=== PATIENT | male | born 1955 | race Caucasian/White ===

== ENCOUNTER → 2018-01-19 09:34 | Outpatient (CLI) | payer OTHER, SELFPAY ==
[2018-01-19 10:30] LABS: Absolute Lymphocyte Count 0.78 X10^3/ul (0.83-4.51); Absolute Neutrophil Count 5.3 X10^3/uL (2.0-7.7); Basophil# 0.04 X10^3/uL; Basophil% 0.5 % (0-1); Eosinophil# 0.56 X10^3/uL; Eosinophils% 7.5 % (0-5); Hematocrit 39.2 % (40-54); Hemoglobin 13.6 g/dl (13.0-16.5); Lymphocyte # 0.78 X10^3/ul (4.0); Lymphocyte % 10.4 % (19-41); Mean Corp Hgb Conc 34.7 g/gl (32-36); Mean Corpuscular Hgb 33.6 pg (27.0-32.0); Mean Corpuscular Volume 96.8 fL (80-94); Monocyte# 0.76 X10^3/uL; Monocyte% 10.2 % (0-10); Neutrophil # 5.25 X10^3/uL (2.7-7.7); Neutrophil % 70.3 % (47-70); Platelet Count 260 K/mm3 (150-450); RBC Distribution Width CV 12.1 % (11.6-14.6); RBC Distribution Width SD 41.7 fl (35.1-43.9); Red Blood Count 4.05 M/mm3 (4.6-6.2); White Blood Count 7.5 K/mm3 (4.4-11.0)
[2018-01-19 10:31] LABS: POSITIVE COUNT NO; POSITIVE DIFFERENTIAL NO; POSITIVE MORPHOLOGY NO
[2018-01-19 10:58] LABS: Microalbumin,Random Urine 62.4 mg/L (NO RANGE EST.); Microalbumin:Creatinine Ratio 116.6 mg/g CRE (<30 mg/g CRE)
[2018-01-19 11:21] LABS: ALB/GLOB Ratio 0.9 RATIO (0.9-2.4); AST(SGOT) 23 U/L (15-37); Alanine Aminotransfer ALT/SGPT 27 U/L (16-61); Albumin, Serum 3.6 g/dL (3.2-5.0); Alkaline Phosphatase 82 U/L (45-117); Anion Gap 8 (5-15); BUN 25 mg/dL (7-18); BUN/Creat Ratio 13.3 RATIO (10-20); Calcium,Total 9.4 mg/dL (8.5-10.1); Chloride 104 mmol/L (98-107); Cholesterol 191 mg/dL (200); Creatinine, Serum 1.88 mg/dL (0.70-1.30); EST Glomerular Filtration Rate 39 mL/min (>60); Est Glom Filt Rate - Afr Amer 47 mL/min (>60); Globulin 4.2 g/dL (2.2-4.2); Glucose 92 mg/dL (74-106); High Density Lipoprotein 56 mg/dL; Potassium 4.3 mmol/L (3.5-5.1); Protein, Total 7.8 g/dL (6.4-8.2); Sodium Level 136 mmol/L (136-145); T3 Total - Triiodothyronine 0.86 ng/mL (0.6-1.81); T4 Total, Thyroxin 6.8 ug/dL (4.5-12.1); Thyroid Stim Hormone (TSH) 1.74 uIU/mL (0.358-3.74); Triglycerides 66 mg/dL; Very Low Density Lipoprotein 13 mg/dL (5-40); Vitamin D,25 Hydroxy 25.3 ng/mL (29.95-100.01)
== END ==
PROVIDERS: Visit Provider Specialist
DX: E78.5 Hyperlipidemia, unspecified (principal); I10 Essential (primary) hypertension; R53.83 Other fatigue
CPT/HCPCS: 36415; 80053; 80061; 82043; 82306; 82570; 84436; 84443; 84480; 85025

== ENCOUNTER → 2018-04-05 11:24 | Outpatient (CLI) | payer OTHER, SELFPAY ==
[2018-04-05 16:24] LABS: Anion Gap 8 (5-15); BUN 20 mg/dL (7-18); BUN/Creat Ratio 10.6 RATIO (10-20); Calcium,Total 9.4 mg/dL (8.5-10.1); Chloride 103 mmol/L (98-107); Creatinine, Serum 1.88 mg/dL (0.70-1.30); EST Glomerular Filtration Rate 39 mL/min (>60); Est Glom Filt Rate - Afr Amer 47 mL/min (>60); Glucose 80 mg/dL (74-106); Potassium 3.8 mmol/L (3.5-5.1); Sodium Level 133 mmol/L (136-145)
== END ==
PROVIDERS: Visit Provider Family Medicine
DX: N18.3 Chronic kidney disease, stage 3 (moderate) (principal)
CPT/HCPCS: 36415; 80048

== ENCOUNTER → 2018-04-16 10:15 | Outpatient (CLI) | payer OTHER, SELFPAY ==
--- NOTE | 2018-04-16 10:23 | US_ITS ---
STUDY: RENAL ULTRASOUND - COMPLETE REASON FOR EXAM: Male, 62 years old. Chronic kidney disease TECHNIQUE: Ultrasound evaluation of the kidneys was performed with real-time and static reid-scale imaging. COMPARISON: None. FINDINGS: RIGHT KIDNEY: Normal location of the right kidney, which is normal in size. The right kidney measures 11.3 x 6.6 x 6.2 cm. There is a normal cortex of the right kidney. The renal cortex measures 1.9 cm. There are 2 right renal cysts measuring 2.1 x 2.0 x 2.2 cm and 1.6 x 1.8 x 1.7 cm respectively. There is a 4 mm right renal calculus. There is no right hydronephrosis. DISTAL RIGHT URETER: There is non-visualization of the distal right ureter. There is no demonstrated right ureterovesical junction calculus. There is a visualized right ureteral jet. LEFT KIDNEY: Normal location of the left kidney, which is normal in size. The left kidney measures 12.3 x 4.9 x 5.7 cm. There is a normal cortex of the left kidney. The renal cortex measures 1.9 cm. There are 2 left renal cysts measuring 1.5 x 1.8 x 1.3 cm and 5.6 x 4.8 x 3.5 cm. There are no left renal calculi. There is no left hydronephrosis. DISTAL LEFT URETER: There is non-visualization of the distal left ureter. There is no demonstrated left ureterovesical junction calculus. There is a visualized left ureteral jet. BLADDER: The distended urinary bladder has a volume of 255 ml. The empty urinary bladder has a volume of 19 ml. There is a normal wall thickness of the distended urinary bladder. There is no demonstrated mass within the urinary bladder. There are no demonstrated bladder calculi. The prostate is enlarged measuring 6.6 x 5.3 x 3.7 cm. US/Kidney and Bladder IMPRESSION: Bilateral renal cysts as detailed above. 4 mm nonobstructing right renal calculus. Electronically Signed: Last Webber MD at 20:05 EDT , Service support ,
== END ==
PROVIDERS: Visit Provider Family Medicine
DX: N18.3 Chronic kidney disease, stage 3 (moderate) (principal)
CPT/HCPCS: 76770

== ENCOUNTER → 2018-04-20 10:29 | Outpatient (CLI) | payer OTHER, SELFPAY ==
[2018-04-20 10:33] LABS: Bacteria 0 SEEN /hpf (None Seen); Mucous, Urine 0 SEEN /hpf (<or=2+); Red Blood Cells-Urine 0 SEEN /hpf (0-5)
[2018-04-20 12:14] LABS: Color, Urine Yellow (Yellow); Glucose, Dipstick 100 mg/dl (Normal); Ketone-Dipstick Negative (Negative); Leukocyte Esterase-Dipstick Negative /ul (Negative); Nitrite-Dipstick Negative (Negative); Occult Blood-Urine 50 /ul (Negative); Protein-Dipstick 15 mg/dl (Negative); Urine Bilirubin Dipstick Negative (Negative); Urine Clarity Clear (Clear); Urine Urobilinogen Normal (Normal)
[2018-04-20 12:19] LABS: Squamous Epithelial Cells - UA 0-5 SEEN /hpf (0-5); White Blood Cells 0-5 SEEN /hpf (0-5)
[2018-04-23 16:10] LABS: PROEL- A/G Ratio 1.5 (0.7-1.7); PROEL- Albumin 4.3 g/dL (2.9-4.4); PROEL- Alpha-1 Globulin 0.2 g/dL (0.0-0.4); PROEL- Alpha-2 Globulin 0.7 g/dL (0.4-1.0); PROEL- Beta Globulin 0.9 g/dL (0.7-1.3); PROEL- Globulin, Total 2.8 g/dL (2.2-3.9); PROEL- TOTAL PROTEIN 7.1 g/dL (6.0-8.5); PROELU- Albumin, Urine 30.1 % (.); PROELU- Alpha-1-Globulin,Ur 8.4 % (.); PROELU- Alpha-2-Globulin,Ur 26.2 % (.); PROELU- Beta Globulin, Ur 21.5 % (.); PROELU- Gamma Globulin, Ur 13.9 % (.); Total Protein, Ur 15.7 mg/dL (Not Estab.)
== END ==
PROVIDERS: Family Provider Family Medicine; PCP Family Medicine; Visit Provider Family Medicine
DX: N18.3 Chronic kidney disease, stage 3 (moderate) (principal)
CPT/HCPCS: 36415; 81001; 84165; 84166

== ENCOUNTER → 2018-06-13 13:38 | Outpatient (CLI) | payer OTHER, SELFPAY ==
[2018-06-13 14:39] LABS: Albumin, Serum 4.3 g/dL (3.2-5.0); BUN 16 mg/dL (7-18); BUN/Creat Ratio 11.3 RATIO (10-20); Calcium,Total 9.6 mg/dL (8.5-10.1); Chloride 96 mmol/L (98-107); Creatinine, Serum 1.42 mg/dL (0.70-1.30); EST Glomerular Filtration Rate 54 mL/min (>60); Est Glom Filt Rate - Afr Amer 65 mL/min (>60); Glucose 87 mg/dL (74-106); Phosphorus 2.6 mg/dL (2.5-4.9); Potassium 3.9 mmol/L (3.5-5.1); Sodium Level 130 mmol/L (136-145)
== END ==
PROVIDERS: Family Provider Family Medicine; PCP Family Medicine; Visit Provider Internal Medicine Nephrology
DX: N17.9 Acute kidney failure, unspecified (principal)
CPT/HCPCS: 36415; 80069

== ENCOUNTER → 2018-07-18 13:18 | Outpatient (CLI) | payer OTHER, SELFPAY ==
[2018-07-18 17:30] LABS: Albumin, Serum 3.9 g/dL (3.2-5.0); BUN 19 mg/dL (7-18); BUN/Creat Ratio 13.5 RATIO (10-20); Calcium,Total 9.4 mg/dL (8.5-10.1); Chloride 94 mmol/L (98-107); Creatinine, Serum 1.41 mg/dL (0.70-1.30); EST Glomerular Filtration Rate 54 mL/min (>60); Est Glom Filt Rate - Afr Amer 65 mL/min (>60); Glucose 89 mg/dL (74-106); Phosphorus 2.5 mg/dL (2.5-4.9); Potassium 4.2 mmol/L (3.5-5.1); Sodium Level 130 mmol/L (136-145)
== END ==
PROVIDERS: Family Provider Family Medicine; PCP Family Medicine; Visit Provider Internal Medicine Nephrology
DX: N17.9 Acute kidney failure, unspecified (principal)
CPT/HCPCS: 36415; 80069

== ENCOUNTER → 2018-11-12 12:14 | Outpatient (CLI) | payer OTHER, SELFPAY ==
[2018-11-12 13:30] LABS: Albumin, Serum 3.9 g/dL (3.2-5.0); BUN 18 mg/dL (7-18); BUN/Creat Ratio 12.3 RATIO (10-20); Calcium,Total 9.3 mg/dL (8.5-10.1); Chloride 102 mmol/L (98-107); Creatinine, Serum 1.46 mg/dL (0.70-1.30); EST Glomerular Filtration Rate 52 mL/min (>60); Est Glom Filt Rate - Afr Amer 63 mL/min (>60); Glucose 126 mg/dL (74-106); Phosphorus 2.6 mg/dL (2.5-4.9); Potassium 4.2 mmol/L (3.5-5.1); Sodium Level 137 mmol/L (136-145)
== END ==
PROVIDERS: Visit Provider Internal Medicine Nephrology
DX: N17.9 Acute kidney failure, unspecified (principal)
CPT/HCPCS: 36415; 80069

== ENCOUNTER 2019-02-12 05:44 | Day surgery (SDC) | payer OTHER, SELFPAY ==
[2019-02-06 14:08] VITALS: BMI 29.0
--- NOTE | 2019-02-06 16:20 | HP_ITS ---
Intake Vital Signs 02/06/19 Height 6 ft 02/06/19 Weight: 214 lb 02/06/19 Body Mass Index (BMI) 29.0 02/06/19 Blood Pressure 169/79 H 02/06/19 Blood Pressure Location Rt brachial 02/06/19 Blood Pressure Position Sitting 02/06/19 Respiratory Rate 20 H 02/06/19 Pulse Rate 89 02/06/19 Pulse Source Monitor 02/06/19 Temperature 98.2 F 02/06/19 Temperature Source Oral 02/06/19 Pulse Ox 96 02/06/19 Oxygen Delivery Method room air Intake Visit Reasons: Hernia Clinical Program Consultant Required: No Is patient in pain?: No Allergies No Known Allergies Allergy (Unverified 02/06/19 14:09) Medications amlodipine 10 mg tablet 10 mg PO DAILY 02/06/19 [History Confirmed 02/06/19] citalopram 40 mg tablet 20 mg PO DAILY 02/06/19 [History Confirmed 02/06/19] losartan 100 mg tablet 100 mg PO DAILY 02/06/19 [History Confirmed 02/06/19] PFSH Medical History Tobacco abuse (Acute) Bilateral inguinal hernia without obstruction or gangrene (Acute) Screening for intestinal cancer (Acute) Arthritis (Acute) Hemorrhoids (Acute) Left inguinal hernia (Acute) Hypertension (Chronic) Surgical History History of carpal tunnel surgery of right wrist (Acute) hitory ORIF right leg (Acute) Family History Mother Arthritis Sister Breast cancer Father Diabetes Hypertension Arthritis Sister Cancer Lung Cancer Social History Smoking Status: Current every day smoker tobacco type: cigarettes Tobacco: How many years used: 40 alcohol intake: current alcohol intake frequency: 0-2 drinks per day details: Drinks a couple beers per day substance use type: does not use HPI HPI HPI: JESSICA SNIDER, is a 63 M who presents to the office today for HPI HPI Surgical H&P: Yes HPI: JESSICA SNIDER, is a 63 M who presents to the office today for surgical consultation regarding a progressively enlarging left inguinal hernia. His primary care physician is Dr.Hannah Dominguez who assists in recommending surgical consultation. A written compromise surgical consult recommendations will be returned to her. The patient has known about a left inguinal hernia for extended period of time. When I performed the examination in addition to a large left inguinal hernia easily detected right inguinal hernia. The patient admitted that he also had one at that location as well. He has not had any abdominal surgery. He states that he has had a very remote colonoscopy but greater than 10 years ago. He notes that he has nocturia at least once to twice nightly. He has been a long-term cigarette smoker. He also drinks at least 2 beers per day ROS General General: No weight change, appetite, fatigue, colon cancer, breast cancer or weakness HEENT HEENT: No difficulty swallowing, eye injury, eye surgery, swollen glands or hoarseness Endo Endocrine: No thyroid disease, diabetes mellitus, thyroid cancer, Hair loss, heat intolerance or cold intolerance Skin Skin: No rash or changing moles Breast Breast: No left breast lump, right breast lump, nipple discharge, breast pain, abnormal mammogram, abnormal US or breast enlargement Musc Musculoskeletal: Yes arthritis; no back problems, rheumatoid arthritis, gout or joint pain Cardio Cardiovascular: Yes high blood pressure; no murmur, pacemaker, heart disease, atrial fibrillation, heart attack, heart stent, palpitations, shortness of breat with exertion or chest pain Psych Psychiatric: Yes anxiety; no depression or hearing voices Resp Respiratory: No shortness of breath, No sleep apnea, No cough, No COPD, No asthma, No emphysema, No wheezing Gastro Gastrointestinal: No abdominal pain, No nausea or vomiting, No diarrhea, No constipation, No blood in stool, No acid reflux, Yes hemorrhoids, No ulcers, No gallbladder problem, No black,tarry stools David Hematologic: No blood thinners, No blood disorders, No bleeding, No anemia, No blood clots Neuro Neurologic: No system reviewed and no additional complaints, except as docu, No as per HPI, No abnormal walking, No abnormal hearing, No abnormal movements, No abnormal speech, No behavioral changes, No burning sensations, No confusion, No seizure-like activity, No unsteadiness, No dizziness, No localized weakness, No frequent falls, No headache(s), No lack of coordination, No loss of vision, No memory loss, No numbness, No other visual disturbances, No radiating pain, No restless legs, No sensory deficit, No fainting, No tingling, No tremor(s), No weakness, No other Exam Const General: cooperative, healthy appearing, comfortable, no acute distress Nutritional Appearance: overweight Orientation: alert, awake, oriented x3 HENMT Head: normal to inspection Eyes General: appearance normal, both eyes and all related structures Chest Breast Palpation: No nipple discharge Resp Effort & Inspection: normal respiratory effort Auscultation: clear to auscultation bilaterally Cardio Rate: regular rate Rhythm: regular rhythm Heart Sounds: no murmurs GI Palpation: soft, no hepatosplenomegaly Auscultation: normal bowel sounds Other: Large indirect left inguinal hernia with bowel involvement. Reducible. Moderate right inguinal hernia likely indirect. Reducible. Testicles descended bilaterally but atrophic Skin General: no rashes or lesions noted Extrem General: no calf tenderness bilaterally Psych Affect: normal affect Assessment & Plan Problems 1. Screening for intestinal cancer Z12.10 2. Non-recurrent bilateral inguinal hernia without obstruction or gangrene K40.20 3. Tobacco abuse Z72.0 4. Nocturia R35.1 Plan 63-year-old gentleman. He has quite a sizable left inguinal hernia with sigmoid colon involvement. He has a more moderate size right inguinal hernia. Because of the length of time that the sigmoid colon has been involved in the left inguinal hernia I recommend a colonoscopy with possible biopsy or polypectomy as indicated. He has not had a colonoscopy for greater than 10 years. He is aware of the technique, benefit, risk and alternatives. The patient does have significant tobacco and alcohol dependency. I will recommend that we perform this with monitored anesthesia care. He has left greater than right inguinal hernia. I recommend a laparoscopic bilateral inguinal herniorrhaphy with mesh. In detail I discussed the technique, benefit, risks and alternatives. No guarantees of success have been offered. I have strongly cautioned the patient that he is at increased risk of recurrence if he continues to use cigarettes and I have urged him to cease immediately to improve his perioperative and postoperative course. He is well aware of the importance. I am recommending that we initiate Flomax 0.4 mg orally nightly because of his symptoms of nocturia. Patient is aware that this will assist with possible postoperative acute urinary retention. He has had an opportunity to ask and have questions answered. I very much appreciate the kind opportunity of assisting with his surgical care. Cc: Dr. Aliyah Caldwell M.D., F.A.C.S. Orders Orders: Colonoscopy Today Z86.010 Coding Level of Care Code Comprehensive,moderate Diagnoses Screening for intestinal cancer Z12.10 Non-recurrent bilateral inguinal hernia without obstruction or gangrene K40.20 ??Recurrence: non-recurrent Tobacco abuse Z72.0 Nocturia R35.1
[2019-02-12] VITALS (13 sets, daily range): BP systolic 59–128; BP diastolic 48–75; PULSE 68–89; RESP 16–18; TEMP 36.6–37; O2SAT 90–99; BMI 28.5
--- NOTE | 2019-02-12 07:34 | EKG12_ITS ---
Test Reason : POST-OP ARRYTHMIA Blood Pressure : / mmHG Vent. Rate : 074 BPM Atrial Rate : 074 BPM P-R Int : 160 ms QRS Dur : 090 ms QT Int : 396 ms P-R-T Axes : 047 000 045 degrees QTc Int : 439 ms Normal sinus rhythm Normal ECG No previous ECGs available Confirmed by GIGI ALFREDO ([id number]), supervising editor trailer ILIA MCGILL ([id number]) on 02/18/2019 2:35:17 PM Referred By: Martha Dominguez Confirmed By:GERBER ALFREDO
--- NOTE | 2019-02-12 07:37 | OP.ENDO_ITS ---
02/12/2019 Martha Dominguez [place] [id number] [address] Re : Colonoscopy procedure for Rodrigo Ann Dear Dr. Dominguez This procedure was performed on Tuesday, February 12, 2019. My impressions and recommendations are as follows: Impressions : - Diverticulosis in the sigmoid colon. - The examination was otherwise normal. - No specimens collected. Check ECG Recommendations : - Discharge patient to home. - Resume previous diet. - Continue present medications. - Repeat colonoscopy in 10 years for screening purposes. My findings are described in the full procedure note, which is enclosed. If I can be of further assistance, please feel free to contact me at Doctor phone number(s): Work: . Sincerely, nAthony Caldwell MD 02/12/2019 7:37:31 AM This report has been signed electronically.
== END 2019-02-12 08:48 | disposition home or self-care (01) ==
LOC: EN 05:46 → AC 05:46
PROVIDERS: Family Provider Family Medicine; PCP Family Medicine; Referring Provider Family Medicine; Visit Provider Surgery
PROC: 0DJD8ZZ Inspection of Lower Intestinal Tract, Via Natural or Artificial Opening Endoscopic (ICD-10-PCS; CPT 45378; principal; 2019-02-12 06:55)
DX: Z12.10 Encounter for screening for malignant neoplasm of intestinal tract, unspecified (principal); K57.30 Diverticulosis of large intestine without perforation or abscess without bleeding; K40.20 Bilateral inguinal hernia, without obstruction or gangrene, not specified as recurrent; R35.1 Nocturia; R00.1 Bradycardia, unspecified; I95.9 Hypotension, unspecified; I10 Essential (primary) hypertension; F17.210 Nicotine dependence, cigarettes, uncomplicated
CPT/HCPCS: 45378; 93005; 99152; 99153; J7120

== ENCOUNTER → 2019-02-19 10:21 | Outpatient (CLI) | payer OTHER, SELFPAY ==
[2019-02-12 06:01] VITALS: BMI 28.5
[2019-02-19 11:49] LABS: Hematocrit 42.5 % (40-54); Mean Corp Hgb Conc 35.3 g/gl (32-36); Mean Corpuscular Hgb 34.1 pg (27.0-32.0); Mean Corpuscular Volume 96.6 fL (80-94); Mean Platelet Vol. 9.5 fl (6.2-12.0); Platelet Count 201 K/mm3 (150-450); RBC Distribution Width CV 11.9 % (11.6-14.6); RBC Distribution Width SD 41.2 fl (35.1-43.9); Scan Indicated on CBC? Y/N NO; White Blood Count 5.5 K/mm3 (4.4-11.0)
[2019-02-19 12:08] LABS: Anion Gap 3 (5-15); BUN 23 mg/dL (7-18); BUN/Creat Ratio 16.7 RATIO (10-20); Calcium,Total 8.9 mg/dL (8.5-10.1); Chloride 106 mmol/L (98-107); Creatinine, Serum 1.38 mg/dL (0.70-1.30); EST Glomerular Filtration Rate 55 mL/min (>60); Est Glom Filt Rate - Afr Amer 67 mL/min (>60); Glucose 95 mg/dL (74-106); Potassium 4.3 mmol/L (3.5-5.1); Sodium Level 134 mmol/L (136-145)
== END ==
PROVIDERS: Family Provider Family Medicine; PCP Family Medicine; Referring Provider Surgery; Visit Provider Surgery
DX: Z01.818 Encounter for other preprocedural examination (principal)
CPT/HCPCS: 36415; 80048; 85027

== ENCOUNTER 2019-02-21 10:19 | Day surgery (SDC) | payer OTHER, SELFPAY ==
[2019-02-06 14:08] VITALS: BMI 29.0
[2019-02-12 06:01] VITALS: BMI 28.5
[2019-02-21] VITALS (7 sets, daily range): BP systolic 120–138; BP diastolic 58–80; PULSE 62–82; RESP 16–18; TEMP 36.7–37.2; O2SAT 93–98; BMI 28.5
--- NOTE | 2019-02-21 05:44 | HP.PCM_ITS ---
Problem List (1) Bilateral inguinal hernia without obstruction or gangrene Status: Acute Qualifiers: History and Physical Date of Admission: 02/21/19 MR#: [id number] Acct: [id number] Name: JESSICA SNIDER Rep #: [id number] : 1955 Provider: Anthony Caldwell MD Age/Sex: 63/M Location: [facility] Status: Signed Intake Vital Signs 02/06/19 Height 6 ft 02/06/19 Weight: 214 lb 02/06/19 Body Mass Index (BMI) 29.0 02/06/19 Blood Pressure 169/79 H 02/06/19 Blood Pressure Location Rt brachial 02/06/19 Blood Pressure Position Sitting 02/06/19 Respiratory Rate 20 H 02/06/19 Pulse Rate 89 02/06/19 Pulse Source Monitor 02/06/19 Temperature 98.2 F 02/06/19 Temperature Source Oral 02/06/19 Pulse Ox 96 02/06/19 Oxygen Delivery Method room air 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 Required: No Is patient in pain?: No Allergies No Known Allergies Allergy (Unverified 02/06/19 14:09) Medications amlodipine 10 mg tablet 10 mg PO DAILY 02/06/19 [History Confirmed 02/06/19] citalopram 40 mg tablet 20 mg PO DAILY 02/06/19 [History Confirmed 02/06/19] losartan 100 mg tablet 100 mg PO DAILY 02/06/19 [History Confirmed 02/06/19] PFSH Medical History Tobacco abuse (Acute) Bilateral inguinal hernia without obstruction or gangrene (Acute) Screening for intestinal cancer (Acute) Arthritis (Acute) Hemorrhoids (Acute) Left inguinal hernia (Acute) Hypertension (Chronic) Surgical History History of carpal tunnel surgery of right wrist (Acute) hitory ORIF right leg (Acute) Family History Mother Arthritis Sister Breast cancer Father Diabetes Hypertension Arthritis Sister Cancer Lung Cancer Social History Smoking Status: Current every day smoker tobacco type: cigarettes Tobacco: How many years used: 40 alcohol intake: current alcohol intake frequency: 0-2 drinks per day details: Drinks a couple beers per day substance use type: does not use HPI HPI HPI: JESSICA SNIDER, is a 63 M who presents to the office today for HPI HPI Surgical H&P: Yes HPI: JESSICA SNIDER, is a 63 M who presents to the office today for surgical consultation regarding a progressively enlarging left inguinal hernia. His primary care physician is Dr.Hannah Dominguez who assists in recommending surgical consultation. A written compromise surgical consult recommendations will be returned to her. The patient has known about a left inguinal hernia for extended period of time. When I performed the examination in addition to a large left inguinal hernia easily detected right inguinal hernia. The patient admitted that he also had one at that location as well. He has not had any abdominal surgery. He states that he has had a very remote colonoscopy but greater than 10 years ago. He notes that he has nocturia at least once to twice nightly. He has been a long-term cigarette smoker. He also drinks at least 2 beers per day ROS General General: No weight change, appetite, fatigue, colon cancer, breast cancer or weakness HEENT HEENT: No difficulty swallowing, eye injury, eye surgery, swollen glands or hoarseness Endo Endocrine: No thyroid disease, diabetes mellitus, thyroid cancer, Hair loss, heat intolerance or cold intolerance Skin Skin: No rash or changing moles Breast Breast: No left breast lump, right breast lump, nipple discharge, breast pain, abnormal mammogram, abnormal US or breast enlargement Musc Musculoskeletal: Yes arthritis; no back problems, rheumatoid arthritis, gout or joint pain Cardio Cardiovascular: Yes high blood pressure; no murmur, pacemaker, heart disease, atrial fibrillation, heart attack, heart stent, palpitations, shortness of breat with exertion or chest pain Psych Psychiatric: Yes anxiety; no depression or hearing voices Resp Respiratory: No shortness of breath, No sleep apnea, No cough, No COPD, No asthma, No emphysema, No wheezing Gastro Gastrointestinal: No abdominal pain, No nausea or vomiting, No diarrhea, No constipation, No blood in stool, No acid reflux, Yes hemorrhoids, No ulcers, No gallbladder problem, No black,tarry stools David Hematologic: No blood thinners, No blood disorders, No bleeding, No anemia, No blood clots Neuro Neurologic: No system reviewed and no additional complaints, except as docu, No as per HPI, No abnormal walking, No abnormal hearing, No abnormal movements, No abnormal speech, No behavioral changes, No burning sensations, No confusion, No seizure-like activity, No unsteadiness, No dizziness, No localized weakness, No frequent falls, No headache(s), No lack of coordination, No loss of vision, No memory loss, No numbness, No other visual disturbances, No radiating pain, No restless legs, No sensory deficit, No fainting, No tingling, No tremor(s), No weakness, No other Exam Const General: cooperative, healthy appearing, comfortable, no acute distress Nutritional Appearance: overweight Orientation: alert, awake, oriented x3 HENMT Head: normal to inspection Eyes General: appearance normal, both eyes and all related structures Chest Breast Palpation: No nipple discharge Resp Effort & Inspection: normal respiratory effort Auscultation: clear to auscultation bilaterally Cardio Rate: regular rate Rhythm: regular rhythm Heart Sounds: no murmurs GI Palpation: soft, no hepatosplenomegaly Auscultation: normal bowel sounds Other: Large indirect left inguinal hernia with bowel involvement. Reducible. Moderate right inguinal hernia likely indirect. Reducible. Testicles descended bilaterally but atrophic Skin General: no rashes or lesions noted Extrem General: no calf tenderness bilaterally Psych Affect: normal affect Assessment & Plan Problems 1. Screening for intestinal cancer Z12.10 2. Non-recurrent bilateral inguinal hernia without obstruction or gangrene K40.20 3. Tobacco abuse Z72.0 4. Nocturia R35.1 Plan 63-year-old gentleman. He has quite a sizable left inguinal hernia with sigmoid colon involvement. He has a more moderate size right inguinal hernia. Because of the length of time that the sigmoid colon has been involved in the left inguinal hernia I recommend a colonoscopy with possible biopsy or polyp ectomy as indicated. He has not had a colonoscopy for greater than 10 years. He is aware of the technique, benefit, risk and alternatives. The patient does have significant tobacco and alcohol dependency. I will recommend that we perform this with monitored anesthesia care. He has left greater than right inguinal hernia. I recommend a laparoscopic bilateral inguinal herniorrhaphy with mesh. In detail I discussed the technique, benefit, risks and alternatives. No guarantees of success have been offered. I have strongly cautioned the patient that he is at increased risk of recurrence if he continues to use cigarettes and I have urged him to cease immediately to improve his perioperative and postoperative course. He is well aware of the importance. I am recommending that we initiate Flomax 0.4 mg orally nightly because of his symptoms of nocturia. Patient is aware that this will assist with possible postoperative acute urinary retention. He has had an opportunity to ask and have questions answered. I very much appreciate the kind opportunity of assisting with his surgical care. Cc: Dr. Aliyah Caldwell M.D., F.A.C.S. Orders Orders: Colonoscopy Today Z86.010 Coding Level of Care Code Comprehensive,moderate Diagnoses Screening for intestinal cancer Z12.10 Non-recurrent bilateral inguinal hernia without obstruction or gangrene K40.20 ??Recurrence: non-recurrent Tobacco abuse Z72.0 Nocturia R35.1 02/06/19 1650 <Electronically signed by Anthony Caldwell MD> Date Anthony Caldwell MD I have re-examined the patient. There are no clinical changes since date of exam
--- NOTE | 2019-02-21 12:34 | DCINST_ITS ---
Discharge Diet: Light diet - advance as tolerated - if you have questions about your diet instructions, please talk to you doctor. Discharge Activity: May Not Drive - for 3-5 days or while taking narcotic pain medicine. May shower in (days): 1 Lifting Restrictions: 10 pounds Call your doctor if your incision/area has: Continuous Slow Oozing, Sudden Increased Bleeding, Increased Pain/ Swelling, Increased Redness, Foul Smelling Discharge Call your doctor if you observe: Fever of 101 or Higher Suture Line Care: Avoid Pulling/Pushing, Avoid Pinching/Bending Additional Dressing/Incision Instructions:: Change or remove dressing in 4 days. Leave steri-strips in place for 1 week. Allergies/Adverse Reactions: Allergies No Known Allergies Allergy (Unverified 02/21/19 10:36) Medications to take at Discharge amlodipine 10 mg tablet 10 mg PO DAILY 02/06/19 citalopram 40 mg tablet 20 mg PO DAILY 02/06/19 losartan 100 mg tablet 100 mg PO DAILY 02/06/19 Psyllium Husk [Metamucil] 0.4 gm PO DAILY 02/14/19 Tamsulosin HCl [Flomax] 0.4 mg PO DAILY 02/14/19 Hydrocodone Bitart/Apap 5-325 [[place] 5MG-325MG] 1 tablet PO Q6H PRN PRN 3 Days #10 tablet 02/21/19 The following prescriptions were given: Hydrocodone Bitart/Apap 5-325 [[place] 5MG-325MG] 1 tablet PO Q6H PRN PRN 3 Days #10 tablet PRN Reason: Pain Primary Care Physician: Martha Dominguez MD [Primary Care Provider] - Test Results: Test results from this visit will be discussed in further detail at your follow- up appointment, if applicable. Please Follow Up With: Anthony Caldwell MD - [phone] When: Call to make an appointment to be seen in about 10 days.
[2019-02-21] MEDS: Cefazolin 2 GM in 0.9% Normal Saline 100 ML IV (12:35)
[2019-02-21] MEDS: Bupivacaine Mpf 0.5% 30 ML VIAL (12:44)
--- NOTE | 2019-02-21 13:55 | PCM.OPRPT ---
Problem List (1) Bilateral inguinal hernia without obstruction or gangrene Status: Acute Qualifiers: Report of Operation Date of Procedure: 02/21/19 Pre-Operative Diagnosis: Bilateral inguinal hernias Post-Operative Diagnosis: Bilateral direct inguinal hernias left larger than the right Surgery/Procedure Performed:: Laparoscopic bilateral inguinal herniorrhaphy. Right Bard 3D max large. Lot number [id number]. Reference #[id number]. Expiry date 10/12/2023. Left Bard 3 DMax extra-large. Lot number [id number]. Reference #[id number]. Expiry date 02/10/2022. Secure strap 25. Lot number [id number]. Expiry date 09/04/2020 Description of Surgical Findings:: 63-year-old gentleman who presents with a very symptomatic large left internal hernia with a smaller right inguinal hernia Timeout informed consent was obtained. He was taken out from placement table, general endotracheal intubation anesthesia. The abdomen sterilely prepped and draped. Ancef 2 g given intravenous preoperatively. 0.5% Marcaine was used as local anesthetic. Throughout the procedure total 30 cc was used. Skin sites were reanesthetized. A vertical infraumbilical incision was created holding sutures of 0 Vicryl placed varies needle inserted using drop test performed. The abdomen is insufflated with CO2 to a pressure of 10 mmHg pressure. Try me trocar inserted to the left scope inserted. The bilateral direct inguinal hernias noted left greater than right. 5 mm trochars were placed in the right left lower quadrants. Ilioinguinal nerve blocks were performed under lap scopic visualization. The right groin was dressed first the peritoneum superior lateral to the internal ring was incised carried medially the peritoneum was completely dissected free the hernia sac dissected free the direct indirect and femoral areas dissected free. A Bard 3D max large right mesh was placed and then secured with secure tack laterally and superiorly with 3 tacks. Then I gain access to the left groin. In a similar fashion the peritoneum was dissected free. A extra-large Bard 3D max was selected for the left exit nicely set in position and simply was secured laterally and superiorly with secure strap. It was then secured in the midline to the other mesh with a secure strap x2. Excellent positioning of each mesh was achieved. The peritoneum was then approximated to itself completely obliterated access to the mesh. A single Hemoclip was placed on the right sided peritoneum to assure complete occlusion. Trochars were removed under visualization. The abdomen was allowed to deflate CO2. The fascia at the umbilicus approximately a residual Vicryl figure 8 suture. Skin edges approximated interrupted 4 Monocryl subdermal stitches. Steri-Strips and Telfa and OpSite dressings applied. Sponge and instrument and needle counts were reported to surgically correct. Blood loss was minimal. No apparent complications. He was taken to the recovery area in satisfactory condition. Specimens none. Drains none. Blood loss minimal. Anthony Caldwell M.D., F.A.C.S. Type of Anesthesia:: General Anesthesiologist: Fahad Clark
--- NOTE | 2019-02-21 14:00 | OP.PCM_ITS ---
Problem List (1) Bilateral inguinal hernia without obstruction or gangrene Status: Acute Qualifiers: Report of Operation Date of Procedure: 02/21/19 Pre-Operative Diagnosis: Bilateral inguinal hernias Post-Operative Diagnosis: Bilateral direct inguinal hernias left larger than the right Surgery/Procedure Performed:: Laparoscopic bilateral inguinal herniorrhaphy. Right Bard 3D max large. Lot number [id number]. Reference #[id number]. Expiry date 10/12/2023. Left Bard 3 DMax extra-large. Lot number [id number]. Reference #[id number]. Expiry date 02/10/2022. Secure strap 25. Lot number [id number]. Expiry date 09/04/2020 Description of Surgical Findings:: 63-year-old gentleman who presents with a very symptomatic large left internal hernia with a smaller right inguinal hernia Timeout informed consent was obtained. He was taken out from placement table, general endotracheal intubation anesthesia. The abdomen sterilely prepped and draped. Ancef 2 g given intravenous preoperatively. 0.5% Marcaine was used as local anesthetic. Throughout the procedure total 30 cc was used. Skin sites were reanesthetized. A vertical infraumbilical incision was created holding sutures of 0 Vicryl placed varies needle inserted using drop test performed. The abdomen is insufflated with CO2 to a pressure of 10 mmHg pressure. Try me trocar inserted to the left scope inserted. The bilateral direct inguinal hernias noted left greater than right. 5 mm trochars were placed in the right left lower quadrants. Ilioinguinal nerve blocks were performed under lap scopic visualization. The right groin was dressed first the peritoneum superior lateral to the internal ring was incised carried medially the peritoneum was completely dissected free the hernia sac dissected free the direct indirect and femoral areas dissected free. A Bard 3D max large right mesh was placed and then secured with secure tack laterally and superiorly with 3 tacks. Then I gain access to the left groin. In a similar fashion the peritoneum was dissected free. A extra-large Bard 3D max was selected for the left exit nicely set in position and simply was secured laterally and superiorly with secure strap. It was then secured in the midline to the other mesh with a secure strap x2. Excellent positioning of each mesh was achieved. The peritoneum was then approximated to itself completely obliterated access to the mesh. A single Hemoclip was placed on the right sided peritoneum to assure complete occlusion. Trochars were removed under visualization. The abdomen was allowed to deflate CO2. The fascia at the umbilicus approximately a residual Vicryl figure 8 suture. Skin edges approximated interrupted 4 Monocryl subdermal stitches. Steri-Strips and Telfa and OpSite dressings applied. Sponge and instrument and needle counts were reported to surgically correct. Blood loss was minimal. No apparent complications. He was taken to the recovery area in satisfactory condition. Specimens none. Drains none. Blood loss minimal. Anthony Caldwell M.D., F.A.C.S. Type of Anesthesia:: General Anesthesiologist: Fahad Clark
[2019-02-21] MEDS: Tamsulosin HCl 0.4 MG Capsule PO (16:00)
== END 2019-02-21 16:40 | disposition home or self-care (01) ==
LOC: SDC 10:20 → AC 10:20
PROVIDERS: Family Provider Family Medicine; PCP Family Medicine; Referring Provider Surgery; Visit Provider Surgery
PROC: (CPT 49650; principal; 2019-02-21 11:40)
DX: K40.20 Bilateral inguinal hernia, without obstruction or gangrene, not specified as recurrent (principal); F41.9 Anxiety disorder, unspecified; I10 Essential (primary) hypertension; F17.210 Nicotine dependence, cigarettes, uncomplicated; F10.20 Alcohol dependence, uncomplicated; Y90.9 Presence of alcohol in blood, level not specified
CPT/HCPCS: 49650; J7120; C1781; J2405

== ENCOUNTER 2019-02-26 20:49 | Emergency (ER) | payer OTHER, SELFPAY ==
[2019-02-21 10:37] VITALS: BMI 28.5
[2019-02-26 20:50] VITALS: BP 159/87; PULSE 114; TEMP 37.3; BMI 29.2
--- NOTE | 2019-02-26 21:14 | ED.DCSUM_ITS ---
- ER Visit Summary Date of Service: 02/26/19 Chief Complaint: Urinary retention and fever History of Present Illness: The patient is a 63 M who had bilateral inguinal hernia repair on February 21. Patient was unable to urinate after the surgery and went home with a catheter. He removed this yesterday. He states he is able to urinate yesterday without difficulty. Today he noted a fever and feels like his bladder is not emptying all the way. He has had problems with not emptying his bladder all the way in the past but is never required catheter other than postop. Physical Examination: Blood pressure is 159/87, temperature 99.2, heart rate 114. Patient sitting upright in bed no acute distress. He is nontoxic appearing. Head neck examination unremarkable. Heart is regular rate and rhythm. Lung sounds are clear. Abdomen is soft with mild lower abdominal tenderness. No guarding or rebound. Test Results: CBC was a white count of 15.6 with 87% neutrophils. Chemistry studies reveal sodium of 133 and a creatinine 1.42. This does appear to be consistent with his baseline creatinine. Urinalysis shows 25-50 white cells but 0 bacteria. Blood and urine cultures were sent. Emergency Department Course and Treatment: Patient was given IV fluids here. Due to significantly elevated white count and no bacteria noted in the urine I did pursue a CT of the pelvis with IV contrast. This does reveal bladder wall thickening. Postsurgical changes are noted in the inguinal regions which likely represent seroma versus resolving hematoma. No evidence of abscess. Patient did have bladder scan performed immediately after he urinated. He did not have any residual and therefore catheter was not placed. Patient will be treated with a course of Cipro, first dose given here. Treatment Plan: [] Disposition: Discharge Impression: 1. Postop fever 2. Cystitis This note was generated with [employer]pt[employer] software. It may contain incorrect words, spelling, and punctuation that were not noted in review of the chart prior to signing ED Disposition - Plan for ED Patient: Disposition: Home or Assisted Living Instructions: ED UTI Cystitis Male Prescriptions: Ciprofloxacin [Cipro] 500 mg PO BID #14 tablet Referrals: Martha Dominguez MD [Primary Care Provider] - Anthony Caldwell MD [STAFF PHYSICIAN] - 5-7 Days
[2019-02-26 21:23] LABS: Bacteria 0 SEEN /hpf (None Seen); Mucous, Urine 0 SEEN /hpf (<or=2+); Squamous Epithelial Cells - UA 0 SEEN /hpf (0-5)
[2019-02-26 21:35] LABS: Color, Urine Yellow (Yellow); Glucose, Dipstick Normal (Normal); Ketone-Dipstick Negative (Negative); Leukocyte Esterase-Dipstick 500 /ul (Negative); Nitrite-Dipstick Negative (Negative); Occult Blood-Urine 150 /ul (Negative); Protein-Dipstick Negative (Negative); Urine Bilirubin Dipstick Negative (Negative); Urine Clarity Cloudy (Clear); Urine Urobilinogen Normal (Normal)
[2019-02-26 21:48] LABS: Red Blood Cells-Urine 0-5 SEEN /hpf (0-5); White Blood Cells 25-50 SEEN /hpf (0-5)
[2019-02-26 21:48] LABS: Absolute Lymphocyte Count 0.56 X10^3/ul (0.83-4.51); Absolute Neutrophil Count 13.6 X10^3/uL (2.0-7.7); Basophil# 0.02 X10^3/uL; Basophil% 0.1 % (0-1); Eosinophil# 0.19 X10^3/uL; Eosinophils% 1.2 % (0-5); Hematocrit 37.4 % (40-54); Hemoglobin 13.2 g/dl (13.0-16.5); Lymphocyte # 0.56 X10^3/ul (4.0); Lymphocyte % 3.6 % (19-41); Mean Corp Hgb Conc 35.3 g/gl (32-36); Mean Corpuscular Hgb 34.5 pg (27.0-32.0); Mean Corpuscular Volume 97.7 fL (80-94); Mean Platelet Vol. 9.1 fl (6.2-12.0); Monocyte# 1.16 X10^3/uL; Monocyte% 7.5 % (0-10); Neutrophil # 13.58 X10^3/uL (2.7-7.7); Neutrophil % 87.3 % (47-70); Platelet Count 203 K/mm3 (150-450); RBC Distribution Width CV 12.3 % (11.6-14.6); RBC Distribution Width SD 43.8 fl (35.1-43.9); Red Blood Count 3.83 M/mm3 (4.6-6.2); White Blood Count 15.6 K/mm3 (4.4-11.0)
[2019-02-26 21:49] VITALS: BP 138/74; PULSE 87; RESP 18; TEMP 37.3; O2SAT 97
[2019-02-26 21:49] LABS: Differential Indicated SCAN CRITERIA MET; POSITIVE COUNT NO; POSITIVE DIFFERENTIAL YES; POSITIVE MORPHOLOGY NO
[2019-02-26 21:57] LABS: Anion Gap 10 (5-15); BUN 18 mg/dL (7-18); BUN/Creat Ratio 12.7 RATIO (10-20); Calcium,Total 8.4 mg/dL (8.5-10.1); Chloride 101 mmol/L (98-107); Creatinine, Serum 1.42 mg/dL (0.70-1.30); EST Glomerular Filtration Rate 53 mL/min (>60); Est Glom Filt Rate - Afr Amer 65 mL/min (>60); Estimated Creatinine Clearance 58.44 ml/min; Glucose 97 mg/dL (74-106); Potassium 3.7 mmol/L (3.5-5.1); Sodium Level 133 mmol/L (136-145)
--- NOTE | 2019-02-26 22:03 | CT_ITS ---
STUDY: CT PELVIS WITH CONTRAST REASON FOR EXAM: Male, 63 years old. Urinary frequency and retention. Status post hernia repair. Fever RADIATION DOSAGE (If Supplied By Facility): CTDIvol = ( 22.67 ) mGy, DLP = ( 1449.64 ) mGycm TECHNIQUE: Transaxial imaging of the pelvis was performed without oral contrast. 100ML IV Isovue 300 was administered intravenously. Individualized dose optimization techniques were used for this CT. COMPARISON: Ultrasound dated April 16, 2018 FINDINGS: There is a partially visualized 3.8 x 4.3 cm left renal cyst with peripheral calcifications. There is an additional too small to characterize low-attenuation focus within the left kidney that likely reflects a cyst. The bladder is incompletely distended. There is bladder wall thickening. Normal visualized small intestine. Normal visualized colon. There is no pelvic fluid. There is no pelvic lymphadenopathy or mass lesion. There are prostatic calcifications. There is diffuse atherosclerotic calcification of the pelvic arteries. There are postsurgical changes within the inguinal region bilaterally characterized by stranding within the fat and foci of air. Within the left inguinal region there is a 3.0 x 2.6 x 4.3 cm slightly heterogenous hypointense rounded focus with a Hounsfield units of 15.6. There is a similar appearing focus within the right inguinal region measuring 2.0 x 2.0 x 2.5 cm. There is a small fat-containing umbilical hernia. There are diffuse degenerative changes of the visualized lumbar spine. CT/Pelvis WITH IV Contrast IMPRESSION: Bladder wall thickening, this may be partially secondary to its incomplete distended state however cannot exclude underlying cystitis. Postsurgical changes within the inguinal regions associated with small fluid collections, larger on the left, that likely reflect underlying seroma is or resolving hematomas. Atherosclerosis. Degenerative changes. Partially visualized complex left renal cyst. Electronically Signed: Sara Sawant MD at 23:01 EDT Tel , Service support ,
[2019-02-26] MEDS: 0.9% Normal Saline 1,000 ML 150 ML IV (22:16)
[2019-02-26] MEDS: Ciprofloxacin 500 MG Tablet PO (23:18)
[2019-02-26 23:20] VITALS: BP 168/94; PULSE 109; PULSE 110; RESP 18; TEMP 38; O2SAT 96; O2SAT 97
--- NOTE | 2019-02-27 17:00 | ED.RN ---
lab called with positive urine cultures. Spoke with Dr. Wells no new orders at this time. Will wait for sensitive results for further treatment
--- NOTE | 2019-02-28 12:15 | ED.RN ---
Blood culture report reviewed by dr ramos. No action needed
== END 2019-02-26 23:24 | disposition home or self-care (01) ==
PROVIDERS: Emergency Provider Emergency Medicine; Family Provider Family Medicine; PCP Family Medicine
DX: N30.90 Cystitis, unspecified without hematuria (principal); R50.82 Postprocedural fever; I10 Essential (primary) hypertension; F41.9 Anxiety disorder, unspecified; N40.0 Benign prostatic hyperplasia without lower urinary tract symptoms; Z79.82 Long term (current) use of aspirin; Z79.899 Other long term (current) drug therapy; Z72.0 Tobacco use
CPT/HCPCS: 36415; 72193; 80048; 81001; 85025; 87040; 87077; 87086; 87088; 87184; 87186; 96360; 99284; J7030; Q9967; A4216

== ENCOUNTER → 2019-05-21 09:28 | Outpatient (CLI) | payer OTHER, SELFPAY ==
[2019-05-21 12:55] LABS: Albumin, Serum 3.8 g/dL (3.2-5.0); BUN 19 mg/dL (7-18); BUN/Creat Ratio 13.9 RATIO (10-20); Calcium,Total 9.2 mg/dL (8.5-10.1); Chloride 103 mmol/L (98-107); Creatinine, Serum 1.37 mg/dL (0.70-1.30); EST Glomerular Filtration Rate 56 mL/min (>60); Est Glom Filt Rate - Afr Amer 67 mL/min (>60); Glucose 106 mg/dL (74-106); Potassium 4.2 mmol/L (3.5-5.1); Sodium Level 136 mmol/L (136-145)
== END ==
PROVIDERS: Family Provider Family Medicine; PCP Family Medicine; Visit Provider Internal Medicine Nephrology
DX: N18.3 Chronic kidney disease, stage 3 (moderate) (principal)
CPT/HCPCS: 36415; 80069

== ENCOUNTER → 2019-07-26 09:51 | Outpatient (CLI) | payer OTHER, SELFPAY ==
[2019-07-26 12:49] LABS: Cholesterol 189 mg/dL (200); High Density Lipoprotein 63 mg/dL; PSA,Total - Annual Screen 0.28 ng/mL (0.00-4.00); Triglycerides 73 mg/dL; Very Low Density Lipoprotein 15 mg/dL (5-40)
== END ==
PROVIDERS: Family Provider Family Medicine; PCP Family Medicine; Visit Provider Family Medicine
DX: Z12.5 Encounter for screening for malignant neoplasm of prostate (principal); E78.5 Hyperlipidemia, unspecified
CPT/HCPCS: 36415; 80061; 84153; G0103

== ENCOUNTER → 2019-12-02 10:40 | Outpatient (CLI) | payer OTHER, SELFPAY ==
[2019-12-02 12:51] LABS: Albumin, Serum 3.9 g/dL (3.2-5.0); BUN 21 mg/dL (7-18); BUN/Creat Ratio 15.6 RATIO (10-20); Calcium,Total 9.6 mg/dL (8.5-10.1); Chloride 104 mmol/L (98-107); Creatinine, Serum 1.35 mg/dL (0.70-1.30); EST Glomerular Filtration Rate 57 mL/min (>60); Est Glom Filt Rate - Afr Amer 68 mL/min (>60); Glucose 93 mg/dL (74-106); Potassium 4.4 mmol/L (3.5-5.1); Sodium Level 135 mmol/L (136-145)
[2019-12-02 13:05] LABS: PTHIN 29.8 pg/mL (18.4-80.1)
== END ==
PROVIDERS: PCP Family Medicine; Visit Provider Internal Medicine Nephrology
DX: N18.3 Chronic kidney disease, stage 3 (moderate) (principal)
CPT/HCPCS: 36415; 80069; 83970

== ENCOUNTER → 2020-06-09 10:45 | Outpatient (CLI) | payer OTHER, SELFPAY ==
[2020-06-09 12:18] LABS: Absolute Lymphocyte Count 0.89 X10^3/uL (0.83-4.51); Absolute Neutrophil Count 3.3 X10^3/uL (2.0-7.7); Basophil# 0.03 X10^3/uL; Basophil% 0.6 % (0-1); Hematocrit 40.5 % (40-54); Hemoglobin 14.2 g/dL (13.0-16.5); Lymphocyte # 0.89 X10^3/ul (4.0); Mean Corp Hgb Conc 35.1 g/dL (32-36); Mean Corpuscular Hgb 34.7 pg (27.0-32.0); Mean Platelet Vol. 9.2 fl (6.2-12.0); Monocyte% 10.1 % (0-10); NRBC Flagged by Analyzer 0 % (0-5); Neutrophil # 3.26 X10^3/uL (2.7-7.7); Neutrophil % 66.1 % (47-70); Platelet Count 215 K/mm3 (150-450); RBC Distribution Width CV 11.4 % (11.6-14.6); RBC Distribution Width SD 41.8 fl (35.1-43.9); Red Blood Count 4.09 M/mm3 (4.6-6.2); White Blood Count 4.9 K/mm3 (4.4-11.0)
[2020-06-09 13:09] LABS: ALB/GLOB Ratio 1.1 RATIO (0.9-2.4); AST(SGOT) 33 U/L (15-37); Alanine Aminotransfer ALT/SGPT 31 U/L (16-61); Albumin, Serum 3.8 g/dL (3.2-5.0); Alkaline Phosphatase 56 U/L (45-117); Anion Gap 8 (5-15); BUN 18 mg/dL (7-18); Calcium,Total 9.5 mg/dL (8.5-10.1); Chloride 102 mmol/L (98-107); EST Glomerular Filtration Rate 65 mL/min (>60); Est Glom Filt Rate - Afr Amer 78 mL/min (>60); Globulin 3.5 g/dL (2.2-4.2); Glucose 98 mg/dL (74-106); Potassium 4.4 mmol/L (3.5-5.1); Protein, Total 7.3 g/dL (6.4-8.2); Sodium Level 134 mmol/L (136-145)
== END ==
PROVIDERS: PCP Family Medicine; Visit Provider Family Medicine
DX: I12.9 Hypertensive chronic kidney disease with stage 1 through stage 4 chronic kidney disease, or unspecified chronic kidney disease (principal); N18.3 Chronic kidney disease, stage 3 (moderate)
CPT/HCPCS: 36415; 80053; 85025

== ENCOUNTER 2020-12-09 10:28 | Emergency (ER) | payer MEDICARE, SELFPAY ==
[2020-12-09 10:29] VITALS: BP 169/88; PULSE 91; RESP 17; TEMP 36.6; O2SAT 98; BMI 30.2
--- NOTE | 2020-12-09 10:47 | ED.DCSUM_ITS ---
History of Present Illness Chief Complaint: Upper Extremity Injury Informant: Patient Narrative: 65-year-old male slipped and fell on ice today sustaining a FOOSH injury to the left wrist and hand. He denies any other injuries. He took some Tylenol and states the pain is not as bad. He denies any breaks in the skin. - Past Medical History (1) Hx of bilateral inguinal hernia repair Status: Chronic Comment: 02/21/2019 Past Medical History - Allergies and Home Meds Allergies/Adverse Reactions: Allergies No Known Allergies Allergy (Verified 12/09/20 10:29) Primary Care Physician: Martha Dominguez MD [Primary Care Provider] - Past Medical History: None Surgical History: noncontributory Lives: Spouse/ Significant Other Smoking Status: Former smoker Drugs: None Review of Systems General: Denies: Chills, Fever, Sweats Eyes: Denies: Visual changes - bilaterally, Diplopia ENT: Denies: Rhinorrhea, Sore throat Cardiovascular: Denies: Chest pain, Palpitations Respiratory: Denies: Dyspnea, Cough, Dyspnea on exertion Gastrointestinal: Denies: Abdominal pain, Nausea, Vomiting, Diarrhea, Melena, Hematochezia Genitourinary: Denies: Dysuria, Hematuria, Frequency Musculoskeletal: Reports: Extremity Pain. Denies: Back pain Skin: Denies: Rash, Wounds Neurological: Denies: Headache, Weakness, Numbness Physical Exam Vital Signs/Narrative: Vital Signs Temp Pulse Resp BP Pulse Ox 12/09/20 10:29 97.8 F 91 17 169/88 H 98 Inital Vital Signs reviewed: Yes General: Well nourished, Well developed, No Acute Distress Head: Normocephalic, Atraumatic Eyes: Perrl, EOMI ENT: Moist mucous membranes, No rhinorrhea Neck: Supple, Nontender Cardiovascular: Regular rate, Regular rhythm, No murmurs Respiratory: No distress, CTA bilaterally, Chest nontender Abdomen: Soft, Nontender, Nondistended, Normal bowel sounds Back: Nontender, Normal Inspection Extremities: Tenderness - There is some swelling over the dorsum of the left wrist and left hand. Limited range of motion secondary to pain. 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 Soft tissue swelling. No demonstrated fracture. Electronically Signed: Hamlet Kilgore MD at 11:21 EST Tel , Service support , Wrist X-Ray 12/09/20 10:55 IMPRESSION: Mild arthrosis of this date weighted hyperintensity articulation. Soft tissue swelling. No demonstrated fracture. Electronically Signed: Hamlet Kilgore MD at 11:22 EST Tel , Service support , - Medical Decision Making X-rays of the hand and wrist were obtained. On my interpretation this demonstrates arthritic changes but no acute fracture and soft tissue swelling. Radiology concurs with this assessment. On when I have him use an Rodriguez wrap continued ice I can write for some additional pain medication as this is very painful for him. Follow-up with orthopedics in 10 to 14 days if not improved ED Disposition - Plan for ED Patient: Disposition: Home or Assisted Living Diagnosis: Traumatic hematoma of left hand, Traumatic hematoma of left wrist Instructions: ED Hematoma Prescriptions: Hydrocodone Bitart/Apap 5-325 [[place] 5MG-325MG] 1 tab PO Q6H PRN PRN 3 Days #10 tab PRN Reason: Pain Prescription Printed Referrals: Neeraj Omalley DO [STAFF PHYSICIAN] - 10-14 Days if not better
--- NOTE | 2020-12-09 10:55 | RAD_ITS ---
STUDY: X-RAY - LEFT HAND REASON FOR EXAM: Left hand injury. TECHNIQUE: 3 view(s) of the hand. COMPARISON: None. FINDINGS: Normal radiocarpal articulation. Normal distal radioulnar joint. There is an intraosseous cyst in the scaphoid. There is mild joint space narrowing of the scaphoid-capitate articulation. Normal carpometacarpal articulation of the thumb. Normal second through fifth carpometacarpal joints. Normal metacarpi. Normal metacarpophalangeal joint of the thumb. Normal interphalangeal joint of the thumb. Normal proximal and distal phalanges of the thumb. There is moderately severe joint space narrowing of the third metacarpophalangeal joint. Normal proximal and distal interphalangeal joints of the second through fifth fingers. Normal phalanges of the second through fifth fingers. There is soft tissue swelling. 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 Soft tissue swelling. No demonstrated fracture. Electronically Signed: Hamlet Kilgore MD at 11:21 EST Tel , Service support ,
--- NOTE | 2020-12-09 10:55 | RAD_ITS ---
STUDY: X-RAY - LEFT WRIST REASON FOR EXAM: Left wrist injury. TECHNIQUE: 3 view(s) of the wrist were obtained. COMPARISON: None. FINDINGS: Normal visualized distal radius and ulna. Normal radiocarpal articulation. Normal distal radioulnar articulation. There is an intraosseous cyst in the scaphoid. There is mild joint space narrowing of the scaphoid-capitate articulation. Normal carpometacarpal articulation of the thumb. Normal second through fifth carpometacarpal articulations. Normal visualized metacarpal bones. There is soft tissue swelling. RAD/Wrist min 3 Views IMPRESSION: Mild arthrosis of this date weighted hyperintensity articulation. Soft tissue swelling. No demonstrated fracture. Electronically Signed: Hamlet Kilgore MD at 11:22 EST Tel , Service support ,
[2020-12-09] MEDS: HYDROcodone Bitartrate/Apap 5/325 Tablet PO (11:47)
[2020-12-09 11:49] VITALS: BP 137/63; PULSE 72; RESP 15; O2SAT 96
== END 2020-12-09 11:50 | disposition home or self-care (01) ==
PROVIDERS: Emergency Provider Emergency Medicine; PCP Family Medicine
DX: S60.222A Contusion of left hand, initial encounter (principal); S60.212A Contusion of left wrist, initial encounter; W00.0XXA Fall on same level due to ice and snow, initial encounter; Y93.9 Activity, unspecified; Y92.9 Unspecified place or not applicable; Y99.9 Unspecified external cause status; Z87.891 Personal history of nicotine dependence
CPT/HCPCS: 73110; 73130; 99283

== ENCOUNTER → 2020-12-29 10:12 | Outpatient (CLI) | payer MEDICARE, SELFPAY ==
[2020-12-09 10:29] VITALS: BMI 30.2
[2020-12-29 12:26] LABS: Hematocrit 44.9 % (40-54); Hemoglobin 14.9 g/dL (13.0-16.5); Mean Corp Hgb Conc 33.2 g/dL (32-36); Mean Corpuscular Hgb 33.8 pg (27.0-32.0); Mean Corpuscular Volume 101.8 fL (80-94); Mean Platelet Vol. 9.6 fl (6.2-12.0); Platelet Count 231 K/mm3 (150-450); RBC Distribution Width CV 11.6 % (11.6-14.6); Red Blood Count 4.41 M/mm3 (4.6-6.2); White Blood Count 6.9 K/mm3 (4.4-11.0)
[2020-12-29 12:31] LABS: Albumin, Serum 3.9 g/dL (3.2-5.0); BUN 17 mg/dL (7-18); BUN/Creat Ratio 13.9 RATIO (10-20); Calcium,Total 9.4 mg/dL (8.5-10.1); Chloride 104 mmol/L (98-107); Creatinine, Serum 1.22 mg/dL (0.70-1.30); EST Glomerular Filtration Rate 63 mL/min (>60); Est Glom Filt Rate - Afr Amer 77 mL/min (>60); Glucose 115 mg/dL (74-106); Phosphorus 2.9 mg/dL (2.5-4.9); Potassium 4.3 mmol/L (3.5-5.1); Sodium Level 135 mmol/L (136-145)
== END ==
PROVIDERS: PCP Family Medicine; Visit Provider Internal Medicine Nephrology
DX: N18.30 Chronic kidney disease, stage 3 unspecified (principal)
CPT/HCPCS: 36415; 80069; 85027

== ENCOUNTER → 2022-08-29 | Outpatient (CLI) | payer MEDICARE, SELFPAY ==
[2022-08-29 12:03] LABS: Absolute Lymphocyte Count 1.06 X10^3/uL (0.83-4.51); Absolute Neutrophil Count 4.2 X10^3/uL (2.0-7.7); Basophil# 0.04 X10^3/uL; Basophil% 0.6 % (0-1); Eosinophil# 0.29 X10^3/uL; Eosinophils% 4.7 % (0-5); Hematocrit 43.9 % (40-54); Hemoglobin 15.4 g/dL (13.0-16.5); Lymphocyte # 1.06 X10^3/ul (0.83-4.51); Lymphocyte % 17.2 % (19-41); Mean Corp Hgb Conc 35.1 g/dL (32-36); Mean Corpuscular Hgb 35.5 pg (27.0-32.0); Mean Corpuscular Volume 101.2 fL (80-94); Mean Platelet Vol. 9.5 fl (6.2-12.0); Monocyte# 0.51 X10^3/uL; Monocyte% 8.3 % (0-10); NRBC Flagged by Analyzer 0 % (0-5); Neutrophil # 4.23 X10^3/uL (2.7-7.7); Neutrophil % 68.4 % (47-70); Platelet Count 231 K/mm3 (150-450); RBC Distribution Width CV 11.9 % (11.6-14.6); RBC Distribution Width SD 44.3 fl (35.1-43.9); Red Blood Count 4.34 M/mm3 (4.6-6.2); White Blood Count 6.2 K/mm3 (4.4-11.0)
[2022-08-29 12:21] LABS: ALB/GLOB Ratio 1.1 RATIO (0.9-2.4); AST(SGOT) 23 U/L (15-37); Alanine Aminotransfer ALT/SGPT 28 U/L (16-61); Albumin, Serum 3.8 g/dL (3.2-5.0); Alkaline Phosphatase 61 U/L (45-117); Anion Gap 7 (5-15); BUN 14 mg/dL (7-18); BUN/Creat Ratio 11.9 RATIO (10-20); Calcium,Total 9.4 mg/dL (8.5-10.1); Chloride 105 mmol/L (98-107); Cholesterol 202 mg/dL (200); Creatinine, Serum 1.18 mg/dL (0.70-1.30); EST Glomerular Filtration Rate 65 mL/min (>60); Est Glom Filt Rate - Afr Amer 79 mL/min (>60); Globulin 3.6 g/dL (2.2-4.2); Glucose 99 mg/dL (74-106); High Density Lipoprotein 62 mg/dL; PSA,Total - Annual Screen 0.33 ng/mL (0.00-4.00); Potassium 4.3 mmol/L (3.5-5.1); Protein, Total 7.4 g/dL (6.4-8.2); Sodium Level 137 mmol/L (136-145); Triglycerides 73 mg/dL; Very Low Density Lipoprotein 15 mg/dL (5-40)
== END | disposition home or self-care (01) ==
LOC: BFHLAB 09:14
PROVIDERS: PCP Family Medicine; Visit Provider Family Medicine
DX: Z00.00 Encounter for general adult medical examination without abnormal findings (principal); N18.30 Chronic kidney disease, stage 3 unspecified; I12.9 Hypertensive chronic kidney disease with stage 1 through stage 4 chronic kidney disease, or unspecified chronic kidney disease; N40.0 Benign prostatic hyperplasia without lower urinary tract symptoms; Z12.5 Encounter for screening for malignant neoplasm of prostate
CPT/HCPCS: 36415; 80053; 80061; 84153; 85025; G0103

== ENCOUNTER → 2023-08-21 | Outpatient (CLI) | payer MEDICARE, SELFPAY ==
[2023-08-21 12:25] LABS: Absolute Lymphocyte Count 1.05 X10^3/uL (0.83-4.51); Absolute Neutrophil Count 3.1 X10^3/uL (2.0-7.7); Basophil# 0.05 X10^3/uL; Eosinophil# 0.29 X10^3/uL; Eosinophils% 5.7 % (0-5); Hemoglobin 15.2 g/dL (13.0-16.5); Lymphocyte # 1.05 X10^3/ul (0.83-4.51); Lymphocyte % 20.8 % (19-41); Mean Corp Hgb Conc 34.5 g/dL (32-36); Mean Corpuscular Hgb 35.3 pg (27.0-32.0); Mean Corpuscular Volume 102.1 fL (80-94); Mean Platelet Vol. 9.4 fl (6.2-12.0); Monocyte# 0.54 X10^3/uL; Monocyte% 10.7 % (0-10); NRBC Flagged by Analyzer 0 % (0-5); Neutrophil # 3.08 X10^3/uL (2.7-7.7); Neutrophil % 60.8 % (47-70); Platelet Count 215 K/mm3 (150-450); RBC Distribution Width CV 11.7 % (11.6-14.6); RBC Distribution Width SD 44.2 fl (35.1-43.9); Red Blood Count 4.31 M/mm3 (4.6-6.2); White Blood Count 5.1 K/mm3 (4.4-11.0)
[2023-08-21 12:58] LABS: AST(SGOT) 26 U/L (15-37); Alanine Aminotransfer ALT/SGPT 27 U/L (16-61); Albumin, Serum 3.7 g/dL (3.2-5.0); Alkaline Phosphatase 57 U/L (45-117); Anion Gap 5 (5-15); BUN 20 mg/dL (7-18); BUN/Creat Ratio 16.8 RATIO (10-20); Chloride 102 mmol/L (98-107); Cholesterol 192 mg/dL (200); Creatinine, Serum 1.19 mg/dL (0.70-1.30); EST Glomerular Filtration Rate 65 mL/min (>60); Est Glom Filt Rate - Afr Amer 78 mL/min (>60); Globulin 3.8 g/dL (2.2-4.2); Glucose 103 mg/dL (74-106); High Density Lipoprotein 60 mg/dL; PSA,Total - Annual Screen 0.42 ng/mL (0.00-4.00); Potassium 4.7 mmol/L (3.5-5.1); Protein, Total 7.5 g/dL (6.4-8.2); Sodium Level 133 mmol/L (136-145); Triglycerides 60 mg/dL; Very Low Density Lipoprotein 12 mg/dL (5-40)
== END | disposition home or self-care (01) ==
LOC: BFHLAB 09:42
PROVIDERS: PCP Family Medicine; Referring Provider Family Medicine; Visit Provider Family Medicine
DX: Z00.01 Encounter for general adult medical examination with abnormal findings (principal); N18.30 Chronic kidney disease, stage 3 unspecified; I12.9 Hypertensive chronic kidney disease with stage 1 through stage 4 chronic kidney disease, or unspecified chronic kidney disease; N40.0 Benign prostatic hyperplasia without lower urinary tract symptoms; Z12.5 Encounter for screening for malignant neoplasm of prostate
CPT/HCPCS: 36415; 80053; 80061; 84153; 85025; G0103

== ENCOUNTER → 2024-09-06 | Outpatient (CLI) | payer MEDICARE, SELFPAY ==
[2024-09-06 12:15] LABS: Absolute Lymphocyte Count 1.11 X10^3/uL (0.83-4.51); Absolute Neutrophil Count 3.4 X10^3/uL (2.0-7.7); Basophil# 0.04 X10^3/uL; Basophil% 0.7 % (0-1); Eosinophil# 0.31 X10^3/uL; Eosinophils% 5.7 % (0-5); Hematocrit 42.3 % (40-54); Hemoglobin 14.3 g/dL (13.0-16.5); Lymphocyte # 1.11 X10^3/ul (0.83-4.51); Lymphocyte % 20.4 % (19-41); Mean Corp Hgb Conc 33.8 g/dL (32-36); Mean Corpuscular Hgb 33.8 pg (27.0-32.0); Mean Platelet Vol. 9.5 fl (6.2-12.0); Monocyte# 0.55 X10^3/uL; Monocyte% 10.1 % (0-10); NRBC Flagged by Analyzer 0 % (0-5); Neutrophil # 3.38 X10^3/uL (2.7-7.7); Platelet Count 251 K/mm3 (150-450); RBC Distribution Width CV 11.9 % (11.6-14.6); Red Blood Count 4.23 M/mm3 (4.6-6.2); White Blood Count 5.5 K/mm3 (4.4-11.0)
[2024-09-06 12:41] LABS: AST(SGOT) 25 U/L (15-37); Alanine Aminotransfer ALT/SGPT 26 U/L (16-61); Albumin, Serum 3.6 g/dL (3.2-5.0); Alkaline Phosphatase 63 U/L (45-117); Anion Gap 6 (5-15); BUN 19 mg/dL (7-18); BUN/Creat Ratio 16.7 RATIO (10-20); Chloride 103 mmol/L (98-107); Cholesterol 192 mg/dL (200); Creatinine, Serum 1.14 mg/dL (0.70-1.30); EST Glomerular Filtration Rate 68 mL/min (>60); Est Glom Filt Rate - Afr Amer 82 mL/min (>60); Globulin 3.7 g/dL (2.2-4.2); Glucose 88 mg/dL (74-106); High Density Lipoprotein 61 mg/dL; PSA,Total - Annual Screen 0.67 ng/mL (0.00-4.00); Potassium 4.6 mmol/L (3.5-5.1); Protein, Total 7.3 g/dL (6.4-8.2); Sodium Level 134 mmol/L (136-145); Triglycerides 68 mg/dL; Very Low Density Lipoprotein 14 mg/dL (5-40)
== END | disposition home or self-care (01) ==
LOC: BFHLAB 09:19
PROVIDERS: PCP Family Medicine; Referring Provider Family Medicine; Visit Provider Family Medicine
DX: Z00.01 Encounter for general adult medical examination with abnormal findings (principal); N18.30 Chronic kidney disease, stage 3 unspecified; I12.9 Hypertensive chronic kidney disease with stage 1 through stage 4 chronic kidney disease, or unspecified chronic kidney disease; N40.0 Benign prostatic hyperplasia without lower urinary tract symptoms; Z12.5 Encounter for screening for malignant neoplasm of prostate
CPT/HCPCS: 36415; 80053; 80061; 84153; 85025; G0103

== ENCOUNTER → 2025-09-17 | Outpatient (CLI) | payer MEDICARE, SELFPAY ==
--- OUTSIDE RECORDS SUMMARY | 2025-09-17 10:51 | XMS RPT_ITS | CCD ---
Author Organization [facility] Care Team Providers Care Editor & Co Founder Name Role Phone Martha Dominguez Referring Unavailable Martha Dominguez Attending Unavailable Martha Dominguez Primary Care Unavailable Medications Current Medications Medication Drug Class(es) Dates Sig (Normalized) Sig (Original) amLODIPine 10 mg oral tablet (1 source) Dihydropyridine Calcium Channel Jaelyn Start: 02-06-2019 take 10 mg by mouth once daily Amlodipine Active 10 MG PO DAILY February 05, 2019 11:00pm aspirin 81 mg delayed release oral tablet (1 source) Platelet Aggregation Inhibitor, Nonsteroidal Anti-inflammatory Drug Start: 02-26-2019 take 81 mg by mouth once daily Aspirin Active 81 MG PO DAILY February 25, 2019 11:00pm ciprofloxacin 500 mg oral tablet (1 source) Quinolone Antimicrobial Start: 02-26-2019 take 500 mg by mouth twice daily Ciprofloxacin Hcl Active 500 MG PO TWICE A DAY February 25, 2019 11:00pm citalopram 40 mg oral tablet (1 source) Serotonin Reuptake Inhibitor Start: 02-06-2019 take 20 mg by mouth once daily Citalopram Active 20 MG PO DAILY February 05, 2019 11:00pm losartan potassium 100 mg oral tablet (1 source) Angiotensin 2 Receptor Jaelyn Start: 02-06-2019 take 100 mg by mouth once daily Losartan Active 100 MG PO DAILY February 05, 2019 11:00pm psyllium 400 mg oral capsule (1 source) Start: 02-14-2019 take 0.4 g by mouth once daily Psyllium Husk Active 0.4 GM PO DAILY February 13, 2019 11:00pm tamsulosin hydrochloride 0.4 mg oral capsule (1 source) alpha-Adrenergic Jaelyn Start: 02-14-2019 take 0.4 mg by mouth once daily Tamsulosin Active 0.4 MG PO DAILY February 13, 2019 11:00pm Completed/Discontinued Medications Medication Drug Class(es) Dates Sig (Normalized) Sig (Original) acetaminophen 325 mg / HYDROcodone bitartrate 5 mg oral tablet (2 sources) Opioid Agonist Start: 12-09-2020 End: 12-12-2020 take 1 tablet by mouth every six hours as needed Hydrocodone-Acetami nophen Discontinued 1 TABLET PO EVERY 6 HOURS NEEDED 10 December 09, 2020 December 12, 2020 12:03am Start: 02-21-2019 End: 02-24-2019 take 1 tablet by mouth every six hours as needed Hydrocodone-Acetaminophen Discontinued 1 TABLET PO EVERY 6 HOURS NEEDED 10 February 20, 2019 11:00pm February 23, 2019 11:07pm Problems Active Problems Problem Classification Problem Date Documented Da te Episodic/Chronic Abdominal hernia (1 source) Bilateral inguinal hernia; Translations: [Bilateral inguinal hernia, without obstruction or gangrene, not specified as recurrent] 02-21-2019 Episodic Other screening for suspected conditions (not mental disorders or infectious disease) (1 source) Patient encounter status; Translations: [Encounter for screening for malignant neoplasm of intestinal tract, unspecified] 02-21-2019 Episodic Residual codes; unclassified (1 source) Tobacco user; Translations: [Tobacco use] 02-21-2019 Episodic Superficial injury; contusion (2 sources) Contusion of hand; Translations: [Contusion of left hand, initial encounter] 12-10-2020 Episodic Past or Other Problems Problem Classification Problem Date Documented Da te Episodic/Chronic Unclassified (1 source) hitory ORIF right leg 05-16-2022 Results Test Name Value Interpretation Reference Range Facility CBC W/Diff, Automatedon 11- Absolute Lymph 1.11 X10 3/uL Normal 0.83-4.51 [facility] Comment on above: Performed By: #### L 500.4100, L501.9910, L100.0100, L500.4050 #### [facility] [address] [place], [address] Absolute Neut 3.4 X10 3/uL Normal 2.0-7.7 [facility] Comment on above: Performed By: #### L 500.4100, L501.9910, L100.0100, L500.4050 #### [facility] [address] [place], [address] Basophils/100 WBC (Bld) 0.7 % Normal 0-1 [facility] Comment on above: Performed By: #### L 500.4100, L501.9910, L100.0100, L500.4050 #### [facility] [address] [place], [address] Eosinophils/100 WBC (Bld) 5.7 % High 0-5 [facility] Comment on above: Performed By: #### L 500.4100, L501.9910, L100.0100, L500.4050 #### [facility] [address] [place], [address] Erythrocyte distribution width (RBC) [Ratio] 11.9 % Normal 11.6-14.6 [facility] Comment on above: Performed By: #### L 500.4100, L501.9910, L100.0100, L500.4050 #### [facility] [address] [place], [address] Hematocrit (Bld) [Volume fraction] 42.3 % Normal 40-54 [facility] Comment on above: Performed By: #### L 500.4100, L501.9910, L100.0100, L500.4050 #### [facility] [address] [place], [address] Hemoglobin (Bld) [Mass/Vol] 14.3 g/dL Normal 13.0-16.5 [facility] Comment on above: Performed By: #### L 500.4100, L501.9910, L100.0100, L500.4050 #### [facility] [address] [place], [address] IG% 1.100 High 0.0-0.9 [facility] Comment on above: Result Comment: IG% - Immature Granulocytes (promyelocytes, myelocytes and metamyelocytes) > 1% indicates that a LEFT SHIFT is Present. Performed By: #### L 500.4100, L501.9910, L100.0100, L500.4050 #### [facility] [address] [place], [address] Lymphocytes/100 WBC (Bld) 20.4 % Normal 19-41 [facility] Comment on above: Performed By: #### L 500.4100, L501.9910, L100.0100, L500.4050 #### [facility] [address] [place], [address] MCH (RBC) [Entitic mass] 33.8 pg High 27.0-32.0 [facility] Comment on above: Performed By: #### L 500.4100, L501.9910, L100.0100, L500.4050 #### [facility] [address] [place], [address] MCHC (RBC) [Mass/Vol] 33.8 g/dL Normal 32-36 [facility] Comment on above: Performed By: #### L 500.4100, L501.9910, L100.0100, L500.4050 #### [facility] [address] [place], [address] MCV (RBC) [Entitic vol] 100.0 fL High 80-94 [facility] Comment on above: Performed By: #### L 500.4100, L501.9910, L100.0100, L500.4050 #### [facility] [address] [place], [address] Monocytes/100 WBC (Bld) 10.1 % High 0-10 [facility] Comment on above: Performed By: #### L 500.4100, L501.9910, L100.0100, L500.4050 #### [facility] [address] [place], [address] Neutrophils/100 WBC (Bld) 62.0 % Normal 47-70 [facility] Comment on above: Performed By: #### L 500.4100, L501.9910, L100.0100, L500.4050 #### [facility] [address] [place], [address] Nucleated RBC (Bld) [#/Vol] 0 10*3/uL Normal 0-5 [facility] Comment on above: Performed By: #### L 500.4100, L501.9910, L100.0100, L500.4050 #### [facility] [address] [place], [address] Platelet mean volume (Bld) [Entitic vol] 9.5 fL Normal 6.2-12.0 [facility] Comment on above: Performed By: #### L 500.4100, L501.9910, L100.0100, L500.4050 #### [facility] [address] [place], [address] Platelets (Bld) [#/Vol] 251 10*3/uL Normal 150-450 [facility] Comment on above: Performed By: #### L 500.4100, L501.9910, L100.0100, L500.4050 #### [facility] [address] [place], [address] RBC (Bld) [#/Vol] 4.23 10*6/uL Low 4.6-6.2 [facility] Comment on above: Performed By: #### L 500.4100, L501.9910, L100.0100, L500.4050 #### [facility] [address] [place], [address] RDW SD 44.0 fl High 35.1-43.9 [facility] Comment on above: Performed By: #### L 500.4100, L501.9910, L100.0100, L500.4050 #### [facility] [address] [place], [address] WBC (Bld) [#/Vol] 5.5 10*3/uL Normal 4.4-11.0 [facility] Comment on above: Performed By: #### L 500.4100, L501.9910, L100.0100, L500.4050 #### [facility] [address] [place], [address] Comprehensive Metabolic Prof ilon 09-06-2024 Albumin [Mass/Vol] 3.6 g/dL Normal 3.2-5.0 [facility] Comment on above: Performed By: #### L 500.4100, L501.9910, L100.0100, L500.4050 #### [facility] [address] [place], [address] Albumin/Globulin [Mass ratio] 1.0 {ratio} Normal 0.9-2.4 [facility] Comment on above: Performed By: #### L 500.4100, L501.9910, L100.0100, L500.4050 #### [facility] [address] [place], [address] ALK P 63 U/L Normal 45-117 [facility] Comment on above: Performed By: #### L 500.4100, L501.9910, L100.0100, L500.4050 #### [facility] [address] [place], [address] ALT [Catalytic activity/Vol] 26 U/L Normal 16-61 [facility] Comment on above: Performed By: #### L 500.4100, L501.9910, L100.0100, L500.4050 #### [facility] [address] [place], [address] AST [Catalytic activity/Vol] 25 U/L Normal 15-37 [facility] Comment on above: Performed By: #### L 500.4100, L501.9910, L100.0100, L500.4050 #### [facility] [address] [place], [address] Bilirubin [Mass/Vol] 0.70 mg/dL Normal 0.20-1.00 [facility] Comment on above: Result Comment: For patients on eltrombopag therapy, use of Dimension [place] TBIL is not recommended. Performed By: #### L 500.4100, L501.9910, L100.0100, L500.4050 #### [facility] [address] [place], [address] BUN/CRE 16.7 RATIO Normal 10-20 [facility] Comment on above: Performed By: #### L 500.4100, L501.9910, L100.0100, L500.4050 #### [facility] [address] [place], [address] CA,Total 9.0 mg/dL Normal 8.5-10.1 [facility] Comment on above: Performed By: #### L 500.4100, L501.9910, L100.0100, L500.4050 #### [facility] [address] [place], [address] Chloride [Moles/Vol] 103 mmol/L Normal 98-107 [facility] Comment on above: Performed By: #### L 500.4100, L501.9910, L100.0100, L500.4050 #### [facility] [address] [place], [address] CO2 [Moles/Vol] 24.0 mmol/L Normal 21.0-32.0 [facility] Comment on above: Performed By: #### L 500.4100, L501.9910, L100.0100, L500.4050 #### [facility] [address] [place], [address] Creatinine [Mass/Vol] 1.14 mg/dL Normal 0.70-1.30 [facility] Comment on above: Result Comment: The validity of the calculated GFR GFRAA in patients over 70 years has not been determined. Clinical correlation is essential. Performed By: #### L 500.4100, L501.9910, L100.0100, L500.4050 #### [facility] [address] [place], [address] EST GFR - AA 82 mL/min Normal >60 [facility] Comment on above: Result Comment: Afri can Mosoth[place] GFR Calc Performed By: #### L 500.4100, L501.9910, L100.0100, L500.4050 #### [facility] [address] [place], [address] GAP 6 Normal 5-15 [facility] Comment on above: Performed By: #### L 500.4100, L501.9910, L100.0100, L500.4050 #### [facility] [address] [place], [address] GFR/1.73 sq M.predicted among non-blacks MDRD (S/P/Bld) [Vol rate/Area] 68 mL/min/{1.73_m2} Normal >60 [facility] Comment on above: Result Comment: Non- GFR Calc Performed By: #### L 500.4100, L501.9910, L100.0100, L500.4050 #### [facility] [address] [place], [address] Globulin (S) [Mass/Vol] 3.7 g/dL Normal 2.2-4.2 [facility] Comment on above: Performed By: #### L 500.4100, L501.9910, L100.0100, L500.4050 #### [facility] [address] [place], [address] Glucose [Mass/Vol] 88 mg/dL Normal 74-106 [facility] Comment on above: Performed By: #### L 500.4100, L501.9910, L100.0100, L500.4050 #### [facility] [address] [place], [address] Potassium [Moles/Vol] 4.6 mmol/L Normal 3.5-5.1 [facility] Comment on above: Performed By: #### L 500.4100, L501.9910, L100.0100, L500.4050 #### [facility] [address] [place], [address] Sodium [Moles/Vol] 134 mmol/L Low 136-145 [facility] Comment on above: Performed By: #### L 500.4100, L501.9910, L100.0100, L500.4050 #### [facility] [address] [place], [address] T PROT 7.3 g/dL Normal 6.4-8.2 [facility] Comment on above: Performed By: #### L 500.4100, L501.9910, L100.0100, L500.4050 #### [facility] [address] [place], [address] Urea nitrogen [Mass/Vol] 19 mg/dL High 7-18 [facility] Comment on above: Performed By: #### L 500.4100, L501.9910, L100.0100, L500.4050 #### [facility] [address] [place], [address] Lipid Profileon 09-06-2024 Cholesterol [Mass/Vol] 192 mg/dL Normal 200 [facility] Comment on above: Result Comment: <200 mg/dL Desirable 200-240 mg/dL Borderline >240 mg/dL High Risk Performed By: #### L 500.4100, L501.9910, L100.0100, L500.4050 #### [facility] [address] [place], [address] Cholesterol in HDL [Mass/Vol] 61 mg/dL Normal [facility] Comment on above: Result Comment: The drugs N-Acetylcysteine and Metamizole may falsely depress this assay. Reference Range HDL <40 mg/dL Low HDL Cholesterol HDL >or= 60 mg/dL High HDL Cholesterol Performed By: #### L 500.4100, L501.9910, L100.0100, L500.4050 #### [facility] [address] [place], [address] Cholesterol in LDL [Mass/Vol] 117 mg/dL Normal 0-130 [facility] Comment on above: Performed By: #### L 500.4100, L501.9910, L100.0100, L500.4050 #### [facility] [address] [place], [address] Cholesterol in VLDL [Mass/Vol] 14 mg/dL Normal 5-40 [facility] Comment on above: Performed By: #### L 500.4100, L501.9910, L100.0100, L500.4050 #### [facility] [address] [place], [address] Triglyceride [Mass/Vol] 68 mg/dL Normal [facility] Comment on above: Result Comment: The drugs N-Acetylcysteine and Metamizole may falsely depress this assay. Serum Triglycerides Reference Interval Normal <150 mg/dL Borderline high 150 - 199 mg/dL High 200 - 499 mg/dL Very High > or = 500 mg/dL Performed By: #### L 500.4100, L501.9910, L100.0100, L500.4050 #### [facility] [address] [place], [address] PSA,Total - Annual Screenon 09-06-2024 PSA,TOT SCREEN 0.67 ng/mL Normal 0.00-4.00 [facility] Comment on above: Result Comment: This test was performed using the TPSA assay method for the [employer] chemistry system. Values obtained with different assay methods cannot be used interchangably. When changing PSA assays in the course of monitoring a patient, additional sequential testing should be carried out to confirm baseline values. Performed By: #### L 500.4100, L501.9910, L100.0100, L500.4050 #### [facility] [address] [place], [place], [address] Absolute lymphocyte countOrd ered By: Martha Dominguez on 08-21-2023 Lymphocytes Auto (Unsp spec) [#/Vol] 1.05 10*3/uL 0.83-4.51 [facility] Basophil percentageOrdered B y: Martha Dominguez on 08-21-2023 Basophils/100 WBC (Bld) 1.0 % 0-1 [facility] Bilirubin [Mass/Vol] 0.80 mg/dL 0.20-1.00 [facility] Comment on above: For patients on eltr ombopag therapy, use of Dimension [place] TBIL is not recommended. Chloride [Moles/Vol] 102 mmol/L 98-107 [facility] Cholesterol [Mass/Vol] 192 mg/dL <200 [facility] Comment on above: <200 mg/dL Desirable 200-240 mg/dL Borderline >240 mg/dL High Risk Eosinophils/100 WBC (Bld) 5.7 % 0-5 [facility] Glucose [Mass/Vol] 103 mg/dL 74-106 [facility] Comment on above: Fasting Glucose resu lt from 100 to 125 mg/dL suggests IMPAIRED HOMEOSTASIS per A.D.A. criteria. Neutrophils (Bld) [#/Vol] 3.1 10*3/uL 2.0-7.7 [facility] Neutrophils/100 WBC (Bld) 60.8 % 47-70 [facility] Potassium [Moles/Vol] 4.7 mmol/L 3.5-5.1 [facility] Protein [Mass/Vol] 7.5 g/dL 6.4-8.2 [facility] Sodium [Moles/Vol] 133 mmol/L 136-145 [facility] Triglyceride [Mass/Vol] 60 mg/dL <199 [facility] Comment on above: The drugs N-Acetylcy steine and Metamizole may falsely depress this assay.Serum Triglycerides Reference Interval Normal <150 mg/dL Borderline high 150 - 199 mg/dL High 200 - 499 mg/dL Very High > or = 500 mg/dL WBC (Bld) [#/Vol] 5.1 10*3/uL 4.4-11.0 [facility] Blood erythrocytes count (nu mber/volume)Ordered By: Martha Dominguez on 08-21-2023 RBC (Bld) [#/Vol] 4.31 10*6/uL 4.6-6.2 [facility] Blood hemoglobin measurement (mass/volume)Ordered By: Martha Dominguez on 08-21-2023 Hemoglobin (Bld) [Mass/Vol] 15.2 g/dL 13.0-16.5 [facility] Blood lymphocytes/100 leukoc ytesOrdered By: Martha Dominguez on 08-21-2023 Lymphocytes/100 WBC (Bld) 20.8 % 19-41 [facility] Blood monocytes/100 leukocyt esOrdered By: Martha Dominguez on 08-21-2023 Monocytes/100 WBC (Bld) 10.7 % 0-10 [facility] Blood platelet mean volumeOr dered By: Martha Dominguez on 08-21-2023 Platelet mean volume (Bld) [Entitic vol] 9.4 fL 6.2-12.0 [facility] Determination of erythrocyte mean corpuscular volume (MCV)Ordered By: Martha Dominguez on 08-21-2023 MCV (RBC) [Entitic vol] 102.1 fL 80-94 [facility] Hematocrit Auto (Bld) [Volum e fraction]Ordered By: Martha Dominguez on 08-21-2023 Hematocrit (Bld) [Volume fraction] 44.0 % 40-54 [facility] - Chemistry and C hemistry - challengeOrdered By: Martha Dominguez on 08-21-2023 ALP [Catalytic activity/Vol] 57 U/L 45-117 [facility] ALT [Catalytic activity/Vol] 27 U/L 16-61 [facility] CO2 [Moles/Vol] 26.0 mmol/L 21.0-32.0 [facility] Globulin (S) [Mass/Vol] 3.8 g/dL 2.2-4.2 [facility] Urea nitrogen/Creatinine [Mass ratio] 16.8 mg/mg 10-20 [facility] - Hematology and Cell countsOrdered By: Martha Dominguez on 08-21-2023 Erythrocyte distribution width (RBC) [Entitic vol] 44.2 fL 35.1-43.9 [facility] Erythrocyte distribution width (RBC) [Ratio] 11.7 % 11.6-14.6 [facility] Immature granulocytes/100 WBC (Bld) 1.000 % 0.0-0.9 [facility] Comment on above: IG% - Immature Granu locytes (promyelocytes, myelocytes and metamyelocytes) > 1% indicates that a LEFT SHIFT is Present. MCH (RBC) [Entitic mass] 35.3 pg 27.0-32.0 [facility] Nucleated RBC/100 WBC (Bld) [Ratio] 0 % 0-5 [facility] MCHC Auto (RBC) [Mass/Vol]Or dered By: Martha Dominguez on 08-21-2023 MCHC (RBC) [Mass/Vol] 34.5 g/dL 32-36 [facility] No Panel InformationOrdered By: Martha Dominguez on 08-21-2023 Estimated GFR (MDRD) Amer 78 mL/min >60 [facility] Comment on above: GFR Calc Estimated GFR (MDRD) Non-Af Amer 65 mL/min >60 [facility] Comment on above: Non- GFR Calc Prostate Specific Antigen Screen 0.42 ng/mL 0.00-4.00 [facility] Comment on above: This test was perfor med using the TPSA assay method for the[facility] chemistry system. Values obtained with differentassay methods cannot be used interchangably.When changing PSA assays in the course of monitoring apatient, additional sequential testing should be carriedout to confirm baseline values. Platelets bldOrdered By: Harry Dominguez on 08-21-2023 Platelets (Bld) [#/Vol] 215 10*3/uL 150-450 [facility] Serum or plasma albumin salvador urement (mass/volume)Ordered By: Martha Dominguez on 08-21-2023 Albumin [Mass/Vol] 3.7 g/dL 3.2-5.0 [facility] Serum or plasma albumin/glob ulin mass ratioOrdered By: Martha Dominguez on 08-21-2023 Albumin/Globulin [Mass ratio] 1.0 {ratio} 0.9-2.4 [facility] Serum or plasma calcium salvador urement (mass/volume)Ordered By: Martha Dominguez on 08-21-2023 Calcium [Mass/Vol] 9.0 mg/dL 8.5-10.1 [facility] Serum or plasma cholesterol in HDL measurement (mass/volume)Ordered By: Martha Dominguez on 08-21-2023 Cholesterol in HDL [Mass/Vol] 60 mg/dL >40 [facility] Comment on above: The drugs N-Acetylcy steine and Metamizole may falsely depress this assay. Reference Range HDL <40 mg/dL Low HDL Cholesterol HDL >or= 60 mg/dL High HDL Cholesterol Serum or plasma cholesterol in VLDL measurement (mass/volume)Ordered By: Martha Dominguez on 08-21-2023 Cholesterol in VLDL [Mass/Vol] 12 mg/dL 5-40 [facility] Serum or plasma creatinine m easurement (mass/volume)Ordered By: Martha Dominguez on 08-21-2023 Creatinine [Mass/Vol] 1.19 mg/dL 0.70-1.30 [facility] Comment on above: The validity of the calculated GFR & GFRAA in patients over 70 years has not been determined. Clinical correlation is essential. Serum or plasma low density lipoprotein (LDL) cholesterol measurement (mass/volume)Ordered By: Martha Dominguez on 08-21-2023 Cholesterol in LDL [Mass/Vol] 120 mg/dL 0-130 [facility] Serum or plasma urea nitroge n measurement (mass/volume)Ordered By: Martha Dominguez on 08-21-2023 Urea nitrogen [Mass/Vol] 20 mg/dL 7-18 [facility] Thin prep Papanicolaou smear with manual screeningOrdered By: Martha Dominguez on 08-21-2023 Thin prep Papanicolaou smear with manual screening 26 U/L 15-37 [facility] Thin prep Papanicolaou smear with manual screening 5 5-15 [facility] Encounters Encounter Date Encounter Type Care Provider Facility Start: 10-01-2024 Encounter for genera l adult medical examination with abnormal findings Martha Dominguez [facility] Start: 09-06-2024 End: 09-06-2024 ambulatory [facility] Facility:[facility] Start: 08-21-2023 End: 08-21-2023 ambulatory [facility] Work Phone: Start: 08-21-2023 End: 08-21-2023 Patient encounter procedure [facility], Serafin Ortiz [facility] Procedures Date Procedure Procedure Detail Performing Clinician History of repair of inguinal hernia Hx of bilateral inguinal hernia repair Payers Date Payer Category Payer Medicare [id number] 2024 Self-pay [id number] Unknown [id number] Unknown [facility] [id number] Unknown [id number] Social History Date Type Detail Facility Start: 12-09-2020 Tobacco smoking status NHIS Unknown if ever smoked [facility] Start: 12-09-2020 None [facility] Start: 12-09-2020 Spouse/ Signif icant Other [facility] Start: 02-14-2019 Cigarettes [facility] Start: 1955 Sex Assigned At Male [facility] Medical Equipment Procedure Code Equipment Code Equipment Origin al Text Equipment Identifier Dates MJ KEBEDE FDA Start: 02-21-2019 MJ KEBEDE FDA Start: 02-21-2019 MESH,3DMAX RIGHT LG [id number] FDA Start: 02-21-2019 MESH,3DMAX XL LE FT [id number] FDA Start: 02-21-2019 TACKDARRYL SON STRAP FDA Start : 02-21-2019 Evaluation note Note Date & Type Note Facility Evaluation note No assessment information availa ble [facility] Work Phone: Family History No Family History Records Found Relationship Condition Age at Onset Recorded Date/T katie mother Arthritis Unknown sister Malignant neoplasm of breast Unknown father Diabetes mellitus Unknown Hypertension Unknown Arthritis Unknown sister Malignant neoplasm Unknown Advance Directives No Advanced Directives Records Found Advance Directive Response Recorded Date/ Time Living Will No February 26, 2019 7 :59pm Power of Painting Instructor No February 26, 2019 7:59pm Summary Purpose Additional Source Comments Care Teams (unrecognized sec tion and content) Team Status: Active Member Role Status Dates Dr. Martha Dominguez MD Family Provider Active Dr. Martha Dominguez MD Primary Care Provider Active Team Status: Inactive Member Role Status Dates Dr. Martha Dominguez MD Primary Care Prov ider, Attending Provider, Referring Provider Active Goals (unrecognized section and content) Goals may be documented in a n alternate section (unrecognized sect ion and content) No Status Records Found INFORMATION SOURCE (unrecogn ized section and content) DATE CREATED AUTHOR 10/05/2024 [facility] FOR RECORDS PERTAINING TO PATIENTS WHO ARE OR HAVE BEEN ENROLLED IN A CHEMICAL DEPENDENCY/SUBSTANCEABUSE PROGRAM, SOME INFORMATION MAY BE OMITTED. This clinical summary was aggregated from multiple sources. Caution should be exercised in using it in the provision of clinical care. This summary normalizes information from multiple sources, and as a consequence, information in this document may materially change the coding, format and clinical context of patient data. In addition, data may be omitted in some cases. CLINICAL DECISIONS SHOULD BE BASED ON THE PRIMARY CLINICAL RECORDS. [employer] provides no warranty or guarantee of the accuracy or completeness of information in this document.
[2025-09-17 12:35] LABS: Hematocrit 44.9 % (40-54); Hemoglobin 15.2 g/dL (13.0-16.5); Immature Granulocytes Count 0.060 X10^3/uL (0.0-0.0); Mean Corp Hgb Conc 33.9 g/dL (32-36); Mean Corpuscular Volume 101.6 fL (80-94); Mean Platelet Vol. 9.9 fl (6.2-12.0); NRBC Flagged by Analyzer 0 % (0-5); Platelet Count 223 K/mm3 (150-450); RBC Distribution Width CV 11.7 % (11.6-14.6); RBC Distribution Width SD 43.9 fl (35.1-43.9); Red Blood Count 4.42 M/mm3 (4.6-6.2); White Blood Count 6.1 K/mm3 (4.4-11.0)
[2025-09-17 13:10] LABS: AST(SGOT) 26 U/L (<=37); Alanine Aminotransfer ALT/SGPT 21 U/L (<=46); Albumin, Serum 4.2 g/dL (3.4-4.8); Alkaline Phosphatase 59 U/L (40-129); Anion Gap 11 (5-15); BUN 18 mg/dL (4-19); BUN/Creat Ratio 15.8 RATIO (10-20); Calcium,Total 9.6 mg/dL (7.6-11.0); Carbon Dioxide 24.6 mmol/L (21.0-32.0); Chloride 99 mmol/L (98-108); Cholesterol 203 mg/dL (<=200); Globulin 3.0 g/dL (2.2-4.2); Glucose 89 mg/dL (70-99); Low Density Lipoprotein Calc. 126 mg/dL; PSA,Total - Annual Screen 0.42 ng/mL (0.02-4.00); Potassium 4.9 mmol/L (3.3-5.1); Triglycerides 72 mg/dL; Very Low Density Lipoprotein 14 mg/dL (5-40); cholesterol:hdl ratio screen 3.17
== END | disposition home or self-care (01) ==
LOC: BFHLAB 09:49
PROVIDERS: PCP Family Medicine; Visit Provider Family Medicine
DX: Z00.01 Encounter for general adult medical examination with abnormal findings (principal); I10 Essential (primary) hypertension; N40.0 Benign prostatic hyperplasia without lower urinary tract symptoms; Z12.5 Encounter for screening for malignant neoplasm of prostate
CPT/HCPCS: 36415; 80053; 80061; 84153; 85025; G0103